=== PATIENT | female | born 1970 | race Caucasian/White ===

== ENCOUNTER 2019-08-26 18:29 | Emergency (ER) | payer OTHER ==
[2019-08-26] MEDS ORDERED: KETOROLAC TROMETHAMINE 30MG/ML ONE (19:40)
[2019-08-26] MEDS ORDERED: DEXAMETHASONE SOD PHOSPHATE 4 MG/ML 1ML VIAL ONE (19:40)
== END 2019-08-26 20:15 | disposition home or self-care (01) ==
LOC: EDH 18:29
DX: M54.16 Radiculopathy, lumbar region (principal); F41.9 Anxiety disorder, unspecified; I10 Essential (primary) hypertension; E11.9 Type 2 diabetes mellitus without complications; Z88.5 Allergy status to narcotic agent; Z88.1 Allergy status to other antibiotic agents
CPT/HCPCS: 96372; 96374; 99283; J1100; J1885

== ENCOUNTER 2023-08-25 05:54 | Day surgery (SDC) | payer BC ==
[2023-08-23 15:25] LABS: BASOPHILS # (AUTO) 0.02 K/uL (0.00-0.20); BASOPHILS % (AUTO) 0.3 % (0.0-5.0); EOSINOPHILS # (AUTO) 0.27 K/uL (0.00-0.70); HEMATOCRIT 44.6 % (36-48); IMMATURE GRANULOCYTE ABSOLUTE 0.03 K/uL (0-1); LYMPHOCYTES # (AUTO) 1.9 K/uL (1.0-4.8); LYMPHOCYTES % (AUTO) 28.4 % (21.0-51.0); MEAN CORPUSCULAR HEMOGLOBIN 30.4 pg (27.0-33.0); MEAN CORPUSCULAR HGB CONC 32.1 g/dL (32.0-36.0); MEAN CORPUSCULAR VOLUME 94.7 fL (79-99); MONOCYTES # (AUTO) 0.4 K/uL (0.1-1.0); MONOCYTES % (AUTO) 6.2 % (3.0-13.0); NEUTROPHILS # (AUTO) 4.1 K/uL (1.8-7.7); NEUTROPHILS % (AUTO) 60.7 % (40.0-77.0); PLATELET COUNT (AUTO) 234 K/uL (130-400); RED BLOOD CELL COUNT(AUTO) 4.71 MIL/uL (4.00-5.50); RED CELL DISTRIBUTION WIDTH 13.2 % (11.0-15.5); WHITE BLOOD COUNT (AUTO) 6.8 K/uL (4.8-10.8)
[2023-08-23 15:40] LABS: CREATININE 0.7 mg/dL (0.5-1.5); POTASSIUM 4.4 mmol/L (3.5-5.1)
[2023-08-23 15:41] LABS: INR <= 0.93 (0.85-1.15); PROTHROMBIN TIME 10.6 SEC (9.6-11.6)
[2023-08-23 15:43] LABS: PARTIAL THROMBOPLASTIN TIME 28.5 SEC (26.3-35.5)
[2023-08-23 15:50] VITALS: BP 123/67; PULSE 67; RESP 17
[~2023-08-25] VITALS: Ht 160 cm; Wt 126.4 kg
[2023-08-25] VITALS (16 sets, daily range): BP systolic 90–122; BP diastolic 49–65; PULSE 60–71; RESP 15–18
[~2023-08-25 05:54] MED LIST: ATOR40TA69 PO; CELE-125 PO; CHOL500051 PO; CRAN1CAP5 PO; DULO30CA52 PO; LISI10TA24 PO; METF-444 PO; MULT-1367 PO; OXYB5TAB20 PO; SEMA2PEN SQ
[2023-08-25] MEDS ORDERED: CEFAZOLIN SODIUM 2 GM VIAL ONE (06:12)
[2023-08-25] MEDS ORDERED: CEFAZOLIN SODIUM 1 GM VIAL ONE (06:12)
[2023-08-25] MEDS ORDERED: LIDOCAINE PF 100MG/5ML (2%) SYRINGE 5ML ONE (07:07)
[2023-08-25] MEDS ORDERED: PROPOFOL 10 MG/ML 20ML VIAL IV ONE (07:08)
[2023-08-25] MEDS ORDERED: FENTANYL CITRATE PF 50 MCG/1 ML 2ML VIAL ONE (07:08)
[2023-08-25] MEDS ORDERED: MIDAZOLAM HCL 1 MG/ML 2ML VIAL ONE (07:08)
[2023-08-25] MEDS ORDERED: BUPIVACAINE/PF 0.5% 10ML VIAL ONE (07:16)
[2023-08-25] MEDS ORDERED: KETOROLAC 30MG VIAL (30MG/ML) ONE (07:56)
[2023-08-25] MEDS ORDERED: ONDANSETRON 4MG INJ ONE (07:56)
[2023-08-25] MEDS ORDERED: IOHEXOL 180 MG/ML 20 ML VIAL ONE (08:01)
[2023-08-25] MEDS: BUPIVACAINE/PF 0.5% 10ML VIAL IJ ONE (08:01)
[2023-08-25] MEDS: 0.9%NACL 1000ML 1,000 ML IV ONE (10:41)
== END 2023-08-25 10:02 | disposition home or self-care (01) ==
LOC: DAH 05:54
PROVIDERS: ATTEND Student in an Organized Health Care Education/Training Program
DX: M16.11 Unilateral primary osteoarthritis, right hip (principal); I10 Essential (primary) hypertension; E11.9 Type 2 diabetes mellitus without complications; E66.9 Obesity, unspecified; E78.5 Hyperlipidemia, unspecified; Z79.899 Other long term (current) drug therapy; Z79.01 Long term (current) use of anticoagulants; Z98.890 Other specified postprocedural states; Z88.6 Allergy status to analgesic agent; Z88.8 Allergy status to other drugs, medicaments and biological substances; Z90.89 Acquired absence of other organs; Z82.49 Family history of ischemic heart disease and other diseases of the circulatory system; Z82.61 Family history of arthritis; Z79.84 Long term (current) use of oral hypoglycemic drugs; Z68.42 Body mass index [BMI] 45.0-49.9, adult
CPT/HCPCS: 80048; 84703; 85025; 85610; 85730; 36415; 20610; 82948 ×2; 77002; 73502; A4663; J3010; J7030; J0665 ×2; J2001; J2250; J2704; J2405; J1885; J1030 ×2; Q9965; A4215; A4223; A4213; A4222; A4221; J0690; J3490

== ENCOUNTER 2025-04-25 13:16 | Emergency (ER) | payer BC, OTHER ==
[~2025-04-25] VITALS: Ht 162.6 cm; Wt 131.5 kg
[2025-04-25 13:18] VITALS: TEMP 98.2
[2025-04-25 13:55] LABS: IMMATURE GRANULOCYTE ABSOLUTE 0.01 K/uL (0-1); NUCLEATED RED BLOOD CELLS 0.0 % (0.0-0.19); PLATELET COUNT (AUTO) 235 K/uL (130-400); RED BLOOD CELL COUNT(AUTO) 4.21 MIL/uL (4.00-5.50); RED CELL DISTRIBUTION WIDTH 14.4 % (11.0-15.5); WHITE BLOOD COUNT (AUTO) 6.9 K/uL (4.8-10.8)
[2025-04-25 14:04] LABS: CREATININE 0.6 mg/dL (0.5-1.0); GLOMERULAR FILTR. RATE CALC 106.0 mL/min (>90); GLUCOSE,RANDOM 113.0 mg/dL (70-105); SODIUM SERUM 145.0 mmol/L (136-145); UREA NITROGEN, BLOOD 13.0 mg/dL (7-18)
--- NOTE | 2025-04-25 15:14 | EKG ---
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
--- NOTE | 2025-04-25 15:28 | HMCIMG ---
Exam: NONCONTRAST CT BRAIN REASON: headache s/p pituitary tumor removal *. COMPARISON: None. TECHNIQUE: Images are obtained from vertex to the skull base. The exam was performed without IV contrast. FINDINGS: There is normal appearing brain parenchyma. There are no focal mass lesions. There is is no evidence of intracranial hemorrhage or acute stroke. Ventricles and sulci appear normal. Posterior fossa and brainstem structures are unremarkable. Paranasal sinuses and remaining extracranial soft tissues appear normal as well. IMPRESSION: 1. No acute intracranial process. 2. Concern for pituitary lesion would recommend MRI with and without contrast for further evaluation. CT was performed with one or more following dose reduction techniques: automated exposure control, adjustment of the mA and kv according to patient's size, or use of a iterative reconstruction technique.
--- NOTE | 2025-04-25 15:29 | HMCIMG ---
CHEST 1VW REASON: cp COMPARISON: Prior study from 01/16/2010 is available. FINDINGS: Single view of the chest was obtained. Lungs are clear. Heart size is normal. There is no pulmonary vascular congestion. Mediastinum and bony thorax appear unremarkable. The study is unchanged from prior study. IMPRESSION: 1. Normal single view chest x-ray.
--- NOTE | 2025-04-25 16:46 | ERN ---
General Chief Complaint: Multiple Complaints Stated Complaint: LT HEADACHE,LT SHOULDER PAIN,LT CLAVICLE,NECK PAIN Time Seen by MD: 13:18 Time Seen by Midlevel: 13:18 Source: patient History of Present Illness Initial Comments Patient is a 55-year-old female presenting to the emergency department for evaluation of left-sided body pain. She reports a tumor removal from her pituitary on March 14, 2025 and her PCP referred her to the ER to make sure it is not related to her recent surgery. Allergies: Coded Allergies: cephalexin (Unverified Allergy, Unknown, 08/26/19) codeine (Unverified Allergy, Unknown, 08/26/19) Home Meds Active Scripts Ketorolac Tromethamine (Ketorolac Tromethamine) 10 Mg Tablet, 1 TAB PO TID for pain for 5 Days, #15 TAB 0 Refills Prov:CHEN VILLA 04/25/25 Reported Medications Multivitamin (Multivitamin) 1 Each Tablet, 1 EACH PO DAILY, TAB 08/24/23 Cranberry Extract/Vit C (Azo Cranberry Softgel) 250 Mg-60 Mg Capsule, 1 EACH PO DAILY, CAP 08/24/23 Cholecalciferol (Vitamin D3) (Vitamin D3) 125 Mcg (5000 Unit) Capsule, 125 MCG PO BID, CAP 08/24/23 Atorvastatin Calcium (LIPITOR) 40 Mg Tablet, 40 MG PO HS, TAB 08/24/23 Lisinopril (Lisinopril) 10 Mg Tablet, 10 MG PO DAILY, TAB 08/24/23 Duloxetine HCl (Duloxetine HCl) 30 Mg Capsule.dr, 30 MG PO HS, CAP 08/24/23 Metformin HCl (Metformin HCl) 500 Mg Tablet, 500 MG PO DAILY, TAB 08/24/23 Oxybutynin Chloride (Oxybutynin Chloride) 5 Mg Tablet, 5 MG PO BID, TAB 08/24/23 Celecoxib (Celecoxib) 200 Mg Capsule, 200 MG PO DAILY, CAP 08/24/23 Semaglutide (Ozempic) 2 Mg/0.75 Ml (8 Mg/3 Ml) Pen.injctr, 2 MG SQ QWEEK EVERY Monday08/24/23 Past Medical History Past Medical History: Diabetes-Type II, High Cholesterol, Hypertension Medical History Other: PITUATARY GLAND TUMOR Past Surgical History: Other Surgical History Other: PITUATARY TUMOR REMOVAL 03/14/25 ROS Dictation CONSTITUTIONAL: Negative except for HPI HEAD/FACE: Negative except for HPI EENT: Negative except for HPI RESPIRATORY: Negative except for HPI GASTROINTESTINAL/ABDOMINAL: Negative except for HPI GENITOURINARY: Negative except for HPI MUSCULOSKELETAL: Negative except for HPI INTEGUMENTARY: Negative except for HPI NEUROLOGICAL/PSYCH: Negative except for HPI HEMATOLOGIC/LYMPHATIC: Negative except for HPI All Systems Negative, Except as noted above. 13 point review of systems assessed and all negative except for above. Physical Exam Physical Exam Dictation Vital Signs reviewed General Appearance: Alert, oriented x 3, no acute distress, well developed, nourished. Head and Face: non-traumatic. Eyes: PERRL, pink conjunctivas, eyelid no trauma, anterior chamber with arcus senilis. Ears: Pinnas intact and no signs of trauma or erythema ear canals clear and no discharge TM no erythema Nose: No discharge, no bleeding. Oropharynx: Mouth normal, tongue pink, pharynx clear,no erythema, tonsils no exudates, no abscesses noted, mucous membrane moist Neck: Supple, non-tender, no thyromegaly, no masses, no JVD, no bruits Breast:Deferred Chest:No tenderness, no crepitus, no paradoxical movement, no retractions Lungs:Clear, well-ventilated, symmetric, no rales, no wheezing, no rhonchi, no stridor, good breath sounds bilaterally Heart: Regular rate, regular rhythm, no murmur, no gallops Vascular: no peripheral edema, Abdomen: Soft, positive bowel sounds, nondistended, no guarding, nontender, no rebound, no masses no hepatomegaly, no splenomegaly, no Jin's sign, no hernias. Rectal: Deferred Genital: Deferred Neurological: Normal speech, motor function intact, sensory function intact Musculoskeletal: Neck nontender, full range of motion, back nontender, full range of motion, Extremities: nontender, full range of motion Skin: Color pink, dry, no turgor, no rash, no lacerations, no abrasions, no contusions. Lymphatic: Deferred Results Laboratory and Microbiology Lab and Micro Result Laboratory Tests Test 04/25/25 13:37 White Blood Count 6.9 K/uL (4.8-10.8) Red Blood Count 4.21 MIL/uL (4.00-5.50) Hemoglobin 12.3 g/dL (12.0-16.0) Hematocrit 38.8 % (36-48) Mean Corpuscular Volume 92.2 fL (79-99) Mean Corpuscular Hemoglobin 29.2 pg (27.0-33.0) Mean Corpuscular Hemoglobin Concent 31.7 g/dL (32.0-36.0) L Red Cell Distribution Width 14.4 % (11.0-15.5) Platelet Count 235 K/uL (130-400) Mean Platelet Volume 10.1 fL (7.5-10.5) Immature Granulocyte % (Auto) 0.1 % (0-1) Neutrophils (%) (Auto) 71.1 % (40.0-77.0) Lymphocytes (%) (Auto) 19.5 % (21.0-51.0) L Monocytes (%) (Auto) 7.2 % (3.0-13.0) Eosinophils (%) (Auto) 2.0 % (0.0-8.0) Basophils (%) (Auto) 0.1 % (0.0-5.0) Neutrophils # (Auto) 4.9 K/uL (1.8-7.7) Lymphocytes # (Auto) 1.4 K/uL (1.0-4.8) Monocytes # (Auto) 0.5 K/uL (0.1-1.0) Eosinophils # (Auto) 0.14 K/uL (0.00-0.70) Basophils # (Auto) 0.01 K/uL (0.00-0.20) Absolute Immature Granulocyte (auto 0.01 K/uL (0-1) Nucleated Red Blood Cells 0.0 % (0.0-0.19) Sodium Level 145 mmol/L (136-145) Potassium Level 4.6 mmol/L (3.5-5.1) Chloride Level 104 mmol/L (101-111) Carbon Dioxide Level 31 mmol/L (21-32) Blood Urea Nitrogen 13 mg/dL (7-18) Creatinine 0.6 mg/dL (0.5-1.0) Glomerular Filtration Rate Calc 106 mL/min (>90) Random Glucose 113 mg/dL (70-105) H Total Calcium 8.7 mg/dL (8.5-10.1) Labs Reviewed?: Yes MDM MDM: Differential diagnosis: Postop complication, intracranial bleed, electrolyte abnormality There are no social concerns with this patient. Prescription drug management Prescriptions will include: None Medical management and examination interpretation discussions were had by me with other qualified healthcare professionals as indicated for the patient's care. ED Course Orders Procedure Category Date Status Time Cbc With Differential LAB 04/25/25 Complete 13:27 Basic Metabolic Panel LAB 04/25/25 Complete 13:27 Ct Head/Brain W/O CT 04/25/25 Resulted Contrast 13:27 12 Lead Ekg Tracing- EKG 04/25/25 Resulted Technical 14:16 Chest 1vw RAD 04/25/25 Resulted 14:16 Hydrocodone/Apap PHA 04/25/25 Complete 5/325 ([place] 5/325mg) 17:00 Morphine 4mg Syg PHA 04/25/25 Complete (Morphine 4mg Syg) 17:30 Vital Signs Date Time Temp Pulse Resp B/P (MAP) Pulse Ox O2 Delivery O2 Flow Rate FiO2 04/25/25 17:59 78 20 125/75 99 Room Air* 0 21 04/25/25 16:50 74 20 121/67 98 Room Air* 0 21 04/25/25 14:47 76 20 117/61 98 Room Air* 0 21 04/25/25 13:18 98.2 82 20 127/59 99 Room Air 0 DX & DISP Disposition: Discharge Departure Impression: Primary Impression: Non-cardiac chest pain Condition: Stable Scripts Ketorolac Tromethamine (Ketorolac Tromethamine) 10 Mg Tablet 1 TAB PO TID for pain for 5 Days, #15 TAB 0 Refills Prov: CHEN VILLA PAC 04/25/25 Additional Instructions: Blood work today is unremarkable. CT scan of the head is normal. EKG does not show any evidence of a heart attack. Please keep appointment with your neurosurgeon as discussed. Referrals: [facility] (PCP) Time of Disposition: 17:20 I have reviewed the case, and I agree with, Diagnosis and Plan I performed the substantive portion of the visit. I have reviewed and personally made and approve the management plan that is documented in the note by myself or the SALMA. I acknowledge for responsibility for the patient's management plan. CHEN VILLA PAC Apr 25, 2025 16:46
[2025-04-25] MEDS: HYDROcodone/APAP 5/325 1 TAB TABLET PO SCH (17:02)
[2025-04-25] MEDS ORDERED: KETO10TA2 PO (17:20)
[2025-04-25 17:59] VITALS: BP 125/75; PULSE 78; RESP 20; O2SAT 99
== END 2025-04-25 18:01 | disposition home or self-care (01) ==
LOC: EDH 13:16
DX: R07.89 Other chest pain (principal); E11.9 Type 2 diabetes mellitus without complications; E78.00 Pure hypercholesterolemia, unspecified; I10 Essential (primary) hypertension; Z79.1 Long term (current) use of non-steroidal anti-inflammatories (NSAID); Z79.84 Long term (current) use of oral hypoglycemic drugs; Z79.85 Long-term (current) use of injectable non-insulin antidiabetic drugs; Z79.899 Other long term (current) drug therapy; Z88.1 Allergy status to other antibiotic agents; Z88.5 Allergy status to narcotic agent
CPT/HCPCS: 99285; 70450; 71045; 80048; 85025; 36415; 96372; 93005; J2270